=== PATIENT | male | born 2000 | race Caucasian/White ===

== ENCOUNTER 2021-09-18 08:54 | Emergency (ER) | payer MEDICAID ==
[~2021-09-18] VITALS: Ht 177.8 cm; Wt 75.0 kg
[2021-09-18 09:03] VITALS: BP 117/69
[2021-09-18] MEDS ORDERED: KETOROLAC 60MG/2ML VIAL IM ONE (09:30)
[2021-09-18] MEDS ORDERED: IBUP-2029 MT (10:49)
== END 2021-09-18 11:53 | disposition home or self-care (01) ==
LOC: ER 09:08 → EDBD 09:08 → ER 11:53
DX: S80.02XA Contusion of left knee, initial encounter (principal); S90.02XA Contusion of left ankle, initial encounter; V03.90XA Pedestrian on foot injured in collision with car, pick-up truck or van, unspecified whether traffic or nontraffic accident, initial encounter; Y93.89 Activity, other specified; Y92.488 Other paved roadways as the place of occurrence of the external cause
CPT/HCPCS: 73560; 73600; 96372; 99284; J1885